=== PATIENT | female | born 1935 | race Hispanic/Latino ===

== ENCOUNTER 2017-11-07 19:01 | Observation (INO) | payer OTHER ==
[~2017-11-07] VITALS: Ht 157.5 cm; Wt 94.9 kg
[~2017-11-07 19:01] MED LIST: AMLO5TAB4 PO; CYAN100099 PO; ENAL20TA PO; LEVO112T7 PO; LOVA40TA2 PO; METO100T14 PO
[2017-11-07 19:40] LABS: BASOPHILS % (AUTO) 1.1 % (0.0-5.0); EOSINOPHILS % (AUTO) 1.9 % (0.0-8.0); HEMATOCRIT 34.2 % (36-48); LYMPHOCYTES % (AUTO) 20.6 % (21.0-51.0); MEAN CORPUSCULAR HEMOGLOBIN 30.5 pg (27.0-33.0); MEAN CORPUSCULAR HGB CONC 34.7 g/dL (32.0-36.0); NEUTROPHILS % (AUTO) 68.4 % (40.0-77.0); PLATELET COUNT (AUTO) 226 K/uL (130-400); RED BLOOD CELL COUNT(AUTO) 3.89 MIL/uL (4.00-5.50); RED CELL DISTRIBUTION WIDTH 14.1 % (11.0-15.5); WHITE BLOOD COUNT (AUTO) 7.5 K/uL (4.8-10.8)
[2017-11-07 19:51] LABS: CREATININE 1.1 mg/dL (0.5-1.5); POTASSIUM 3.7 mmol/L (3.5-5.1)
[2017-11-07 19:54] LABS: INR 1.09 (0.85-1.15); PARTIAL THROMBOPLASTIN TIME 26.5 SEC (26.3-35.5); PROTHROMBIN TIME 11.4 SEC (9.6-11.6)
[2017-11-07 20:04] LABS: BILIRUBIN,TOTAL 0.9 mg/dL (0.2-1.0); CREATINE KINASE MB 0.9 ng/mL (0.5-3.6)
[2017-11-07 20:16] LABS: B-TYPE NATRIURETIC PEPTIDE 39 pg/mL (0-100)
[2017-11-07 20:32] LABS: APPEARANCE,URINE Clear (CLEAR); BILIRUBIN,URINE Negative (NEGATIVE); COLOR,URINE Yellow (YELLOW); GLUCOSE, URINE (UA) Negative (NEGATIVE); KETONES,URINE Negative (NEGATIVE); LEUKOCYTE ESTERASE ,URINE Negative (NEGATIVE); NITRATE,URINE Negative (NEGATIVE); OCCULT BLOOD,URINE Negative (NEGATIVE); PH,URINE 5.5 (5.0-8.0); PROTEIN,URINE Negative (NEGATIVE); UROBILINOGEN,URINE 0.2 mg/dL (0.2-1.0)
[2017-11-07] MEDS ORDERED: SODIUM CHLORIDE 0.9% 10 ML VIAL IVP PRN (22:00)
[2017-11-07] MEDS: NITROGLYCERIN 1GM/1 INCH PACKET TD SCH (22:00)
[2017-11-07 23:15] VITALS: BP 176/83
[2017-11-08] MEDS ORDERED: SPIR25TA4 PO (00:23)
[2017-11-08] MEDS ORDERED: GARL1000 PO (00:23)
[2017-11-08] MEDS ORDERED: CHOL50004 PO (00:26)
[2017-11-08] MEDS ORDERED: ACET-2247 PO (00:28)
[2017-11-08] MEDS ORDERED: FLU VACC QS2017-18 36MOS UP/PF 60 MCG/0.5 ML ML IM SCH (02:00)
[2017-11-08 03:58] VITALS: BP 148/68
[2017-11-08 05:21] LABS: CREATINE KINASE MB 0.9 ng/mL (0.5-3.6); CREATINE KINASE, TOTAL 77 U/L (21-232); MYOGLOBIN 59 ng/mL (10-92); TROPONIN I < 0.04 ng/mL (0.00-0.06)
[2017-11-08] MEDS: NITROGLYCERIN 1GM/1 INCH PACKET TD SCH ×3 (06:40→20:24)
[2017-11-08 08:00] VITALS: BP 147/76
[2017-11-08] MEDS ORDERED: ASPIRIN 325 MG TABLET PO SCH (09:00)
[2017-11-08 11:00] VITALS: BP 133/72
[2017-11-08] MEDS ORDERED: DEXTROSE 50%-WATER 50 ML DISP.SYRIN IV PRN (11:45)
[2017-11-08] MEDS ORDERED: GLUCAGON 1MG KIT 1 MG ML IM PRN (11:45)
[2017-11-08 13:47] LABS: CREATINE KINASE MB 0.5 ng/mL (0.5-3.6); CREATINE KINASE, TOTAL 62 U/L (21-232); MYOGLOBIN 59 ng/mL (10-92); TROPONIN I < 0.04 ng/mL (0.00-0.06)
[2017-11-08] MEDS: PANTOPRAZOLE SODIUM 40 MG TABLET.DR PO SCH (16:12)
[2017-11-08 16:25] VITALS: BP 118/57
[2017-11-08] MEDS ORDERED: INSULIN HUMULIN R 100 UNIT/ML 3ML SQ SCH (16:30)
[2017-11-08] MEDS: INSULIN HUMULIN R 100 UNIT/ML 3ML SQ SCH ×2 (16:30→21:00)
[2017-11-08 19:21] VITALS: BP 155/78
[2017-11-08] MEDS ORDERED: MORPHINE SULFATE 2 MG/ML 1ML SYG IM PRN (20:15)
[2017-11-08] MEDS ORDERED: ONDANSETRON HCL 4 MG/2 ML VIAL IVP PRN (20:15)
[2017-11-08] MEDS ORDERED: HYDRALAZINE HCL 20 MG/ML VIAL IV PRN (20:15)
[2017-11-08] MEDS ORDERED: LACTULOSE 20 GM/30 ML UDCUP PO PRN (20:15)
[2017-11-08] MEDS ORDERED: ACETAMINOPHEN 325 MG TAB PO PRN (20:15)
[2017-11-08] MEDS: ENOXAPARIN SODIUM 40 MG/0.4 ML SYRINGE SQ SCH (20:26)
[2017-11-08] MEDS ORDERED: ENALAPRIL MALEATE 10 MG TABLET PO SCH (21:00)
[2017-11-08] MEDS ORDERED: ATORVASTATIN CALCIUM 10 MG TABLET PO SCH (21:00)
[2017-11-08] MEDS ORDERED: NITR0.4T50 SL (21:14)
[2017-11-08] MEDS ORDERED: ISOS60TA4 PO (21:14)
[2017-11-08] MEDS ORDERED: CLOP75TA32 PO (21:33)
[2017-11-08 23:47] VITALS: BP 124/54
[2017-11-09 04:18] VITALS: BP 124/60
[2017-11-09 04:56] LABS: EOSINOPHILS % (AUTO) 2.8 % (0.0-8.0); HEMATOCRIT 33.3 % (36-48); MEAN CORPUSCULAR VOLUME 88.3 fL (79-99); MONOCYTES % (AUTO) 8.6 % (3.0-13.0); NEUTROPHILS % (AUTO) 55.6 % (40.0-77.0); PLATELET COUNT (AUTO) 215 K/uL (130-400); RED BLOOD CELL COUNT(AUTO) 3.77 MIL/uL (4.00-5.50); RED CELL DISTRIBUTION WIDTH 14.5 % (11.0-15.5); WHITE BLOOD COUNT (AUTO) 7.6 K/uL (4.8-10.8)
[2017-11-09 05:15] LABS: CREATININE 1.1 mg/dL (0.5-1.5); POTASSIUM 3.8 mmol/L (3.5-5.1)
[2017-11-09] MEDS ORDERED: LEVOTHYROXINE 112 MCG TABLET PO SCH (06:30)
[2017-11-09] MEDS: INSULIN HUMULIN R 100 UNIT/ML 3ML SQ SCH ×2 (06:58→11:30)
[2017-11-09 08:00] VITALS: BP 139/60
[2017-11-09] MEDS ORDERED: CHOLECALCIFEROL 5000 UNIT PO SCH (09:00)
[2017-11-09] MEDS ORDERED: CYANOCOBALAMIN (VITAMIN B-12) 1,000 MCG TABLET PO SCH (09:00)
[2017-11-09] MEDS ORDERED: SPIRONOLACTONE 25 MG TAB PO SCH (09:00)
[2017-11-09] MEDS ORDERED: ISOSORBIDE MONO 60 MG TAB.SR PO SCH (09:00)
[2017-11-09] MEDS ORDERED: CLOPIDOGREL BISULFATE 75 MG TAB PO SCH (09:00)
[2017-11-09 11:00] VITALS: BP 109/59
[2017-11-09] MEDS: PANTOPRAZOLE SODIUM 40 MG TABLET.DR PO SCH (11:41)
[2017-11-09] MEDS: ENOXAPARIN SODIUM 40 MG/0.4 ML SYRINGE SQ SCH (11:45)
== END 2017-11-09 15:50 | disposition home or self-care (01) ==
LOC: EDH 19:01 → EDHIP 21:50 → 3BH 22:22
PROVIDERS: ADMIT Family Medicine; ATTEND Family Medicine
DX: I11.0 Hypertensive heart disease with heart failure (principal); I50.9 Heart failure, unspecified; E11.9 Type 2 diabetes mellitus without complications; E78.5 Hyperlipidemia, unspecified; E03.9 Hypothyroidism, unspecified; Z79.899 Other long term (current) drug therapy; F41.9 Anxiety disorder, unspecified; Z90.49 Acquired absence of other specified parts of digestive tract; Z82.49 Family history of ischemic heart disease and other diseases of the circulatory system; Z23 Encounter for immunization
CPT/HCPCS: 36415 ×3; 71045; 80048; 80053; 81003; 82550 ×3; 82553 ×3; 82948 ×6; 83690; 83874 ×3; 83880; 84484 ×4; 85025 ×2; 85610; 85730; 87804 ×2; 93005 ×3; 93306; 96372 ×2; 99291; G0008; G0378 ×42; J1650 ×2; Q2038

== ENCOUNTER 2017-12-21 15:57 | Emergency (ER) | payer OTHER ==
[~2017-12-21 15:57] MED LIST changes: +ACET-2247 PO; -AMLO5TAB4 PO; +CHOL50004 PO; +CLOP75TA32 PO; +GARL1000 PO; +ISOS60TA4 PO; -METO100T14 PO; +NITR0.4T50 SL; +SPIR25TA4 PO
[2017-12-21 16:51] LABS: BASOPHILS % (AUTO) 1.1 % (0.0-5.0); EOSINOPHILS % (AUTO) 4.1 % (0.0-8.0); HEMATOCRIT 33.3 % (36-48); LYMPHOCYTES % (AUTO) 20.4 % (21.0-51.0); MEAN CORPUSCULAR HGB CONC 34.7 g/dL (32.0-36.0); MEAN CORPUSCULAR VOLUME 89.3 fL (79-99); MONOCYTES % (AUTO) 7.7 % (3.0-13.0); NEUTROPHILS % (AUTO) 66.7 % (40.0-77.0); PLATELET COUNT (AUTO) 229 K/uL (130-400); RED BLOOD CELL COUNT(AUTO) 3.73 MIL/uL (4.00-5.50); WHITE BLOOD COUNT (AUTO) 7.5 K/uL (4.8-10.8)
[2017-12-21 17:09] LABS: CREATININE 1.1 mg/dL (0.5-1.5); POTASSIUM 4.1 mmol/L (3.5-5.1)
[2017-12-21 17:12] LABS: BILIRUBIN,TOTAL 0.9 mg/dL (0.2-1.0); TOTAL PROTEIN, SERUM 7.3 g/dL (6.0-8.3)
== END 2017-12-21 19:39 | disposition home or self-care (01) ==
LOC: EDH 15:57
DX: R00.2 Palpitations (principal); E11.9 Type 2 diabetes mellitus without complications; E78.5 Hyperlipidemia, unspecified; I10 Essential (primary) hypertension; Z88.0 Allergy status to penicillin; Z88.6 Allergy status to analgesic agent; Z88.1 Allergy status to other antibiotic agents; Z88.8 Allergy status to other drugs, medicaments and biological substances
CPT/HCPCS: 36415; 71045; 80053; 84484; 85025; 93005

== ENCOUNTER 2018-08-17 10:38 | Observation (INO) | payer OTHER ==
[~2018-08-17] VITALS: Ht 160 cm; Wt 92.8 kg
[~2018-08-17 10:38] MED LIST changes: -SPIR25TA4 PO; +SPIR25TA6 PO
[2018-08-17 10:58] LABS: BASOPHILS % (AUTO) 0.9 % (0.0-5.0); EOSINOPHILS % (AUTO) 2.4 % (0.0-8.0); HEMATOCRIT 36.9 % (36-48); LYMPHOCYTES % (AUTO) 24.5 % (21.0-51.0); MEAN CORPUSCULAR HEMOGLOBIN 29.6 pg (27.0-33.0); MEAN CORPUSCULAR HGB CONC 32.9 g/dL (32.0-36.0); MONOCYTES % (AUTO) 6.9 % (3.0-13.0); NEUTROPHILS % (AUTO) 65.3 % (40.0-77.0); PLATELET COUNT (AUTO) 197 K/uL (130-400)
[2018-08-17 11:08] LABS: CREATININE 1.3 mg/dL (0.5-1.5); POTASSIUM 4.5 mmol/L (3.5-5.1)
[2018-08-17 11:23] LABS: ALBUMIN 3.4 g/dL (3.5-5.0); BILIRUBIN,TOTAL 1.1 mg/dL (0.2-1.0); TOTAL PROTEIN, SERUM 7.6 g/dL (6.0-8.3)
[2018-08-17 11:37] LABS: B-TYPE NATRIURETIC PEPTIDE 130 pg/mL (0-100)
[2018-08-17] MEDS ORDERED: LACTULOSE 20 GM/30 ML UDCUP PO PRN (15:45)
[2018-08-17] MEDS ORDERED: ONDANSETRON HCL 4 MG/2 ML VIAL IV PRN (15:45)
[2018-08-17] MEDS ORDERED: HYDRALAZINE HCL 20 MG/ML VIAL IV PRN (15:45)
[2018-08-17] MEDS ORDERED: CLOPIDOGREL BISULFATE 300 MG TAB PO SCH (15:45)
[2018-08-17] MEDS ORDERED: ACETAMINOPHEN 325 MG TAB PO PRN ×2 (15:45→21:30)
[2018-08-17 18:52] LABS: HEMOGLOBIN A1C 6.6 % (4.0-6.0)
[2018-08-17 19:11] LABS: CREATINE KINASE, TOTAL 83 U/L (21-232); MYOGLOBIN 76 ng/mL (10-92); THYROID STIMULATING HORMONE 12.65 uIU/mL (0.36-3.74); TROPONIN I < 0.04 ng/mL (0.00-0.06)
[2018-08-17] MEDS ORDERED: METOPROLOL TARTRATE 25 MG TAB PO SCH (21:00)
[2018-08-17 21:20] VITALS: BP 148/75
[2018-08-17] MEDS ORDERED: NITROGLYCERIN 0.4 MG SL TAB SL PRN (21:30)
[2018-08-17] MEDS ORDERED: METF500T7 PO (21:48)
[2018-08-17] MEDS ORDERED: ERGO500014 PO (21:57)
[2018-08-17] MEDS ORDERED: SERT50TA12 PO (21:57)
[2018-08-17] MEDS ORDERED: METO100T14 PO (21:57)
[2018-08-17] MEDS ORDERED: DONE5TAB33 PO (22:01)
[2018-08-17] MEDS ORDERED: AEC81 PO (22:01)
[2018-08-17] MEDS: NITROGLYCERIN 1GM/1 INCH PACKET TD SCH (23:28)
[2018-08-18] VITALS (7 sets, daily range): BP systolic 98–135; BP diastolic 46–65
[2018-08-18 00:15] LABS: CREATINE KINASE, TOTAL 96 U/L (21-232); MYOGLOBIN 74 ng/mL (10-92); TROPONIN I < 0.04 ng/mL (0.00-0.06)
[2018-08-18] MEDS ORDERED: LEVOTHYROXINE 112 MCG TABLET PO SCH (06:30)
[2018-08-18] MEDS: INSULIN HUMULIN R 100 UNIT/ML 3ML SQ SCH ×4 (07:30→21:00)
[2018-08-18] MEDS ORDERED: PANTOPRAZOLE 40 MG/VIAL IVP SCH (07:30)
[2018-08-18] MEDS: NITROGLYCERIN 1GM/1 INCH PACKET TD SCH ×2 (07:45→15:45)
[2018-08-18 08:47] LABS: CREATINE KINASE, TOTAL 80 U/L (21-232); MYOGLOBIN 80 ng/mL (10-92); TROPONIN I < 0.04 ng/mL (0.00-0.06)
[2018-08-18] MEDS ORDERED: CLOPIDOGREL BISULFATE 75 MG TAB PO SCH (09:00)
[2018-08-18] MEDS ORDERED: METOPROLOL TARTRATE 50 MG TAB PO SCH (09:00)
[2018-08-18] MEDS ORDERED: ASPIRIN 325 MG TABLET PO SCH (09:00)
[2018-08-18] MEDS: Cholecalciferol (Vitamin D3) 5,000 UNIT PO SCH (09:00)
[2018-08-18] MEDS: CYANOCOBALAMIN (VITAMIN B-12) 1,000 MCG TABLET PO SCH (09:18)
[2018-08-18] MEDS: CLOPIDOGREL BISULFATE 75 MG TAB PO SCH (09:18)
[2018-08-18] MEDS: ASPIRIN 81 MG EC TAB PO SCH (09:19)
[2018-08-18] MEDS: SPIRONOLACTONE 25 MG TAB PO SCH (09:27)
[2018-08-18] MEDS: ISOSORBIDE MONO 60 MG TAB.SR PO SCH (09:27)
[2018-08-18] MEDS: ENOXAPARIN SODIUM 40 MG/0.4 ML SYRINGE SQ SCH (09:28)
[2018-08-18] MEDS ORDERED: METFORMIN HCL 500 MG TAB.SR.24H PO SCH (17:00)
[2018-08-18] MEDS: PANTOPRAZOLE SODIUM 40 MG TABLET.DR PO SCH (18:21)
[2018-08-18] MEDS ORDERED: SIMVASTATIN 10 MG TABLET PO SCH (21:00)
[2018-08-18] MEDS ORDERED: DONEPEZIL HCL 5 MG TAB PO SCH (21:00)
[2018-08-18] MEDS ORDERED: SERTRALINE HCL 50 MG TABLET PO SCH (21:00)
[2018-08-19 04:29] VITALS: BP 134/56
[2018-08-19] MEDS: PANTOPRAZOLE SODIUM 40 MG TABLET.DR PO SCH (06:19)
[2018-08-19] MEDS: INSULIN HUMULIN R 100 UNIT/ML 3ML SQ SCH ×2 (06:29→12:31)
[2018-08-19] MEDS ORDERED: LEVOTHYROXINE 125 MCG TABLET PO SCH (06:30)
[2018-08-19 08:00] VITALS: BP 133/70
[2018-08-19] MEDS: Cholecalciferol (Vitamin D3) 5,000 UNIT PO SCH (09:00)
[2018-08-19] MEDS: ENOXAPARIN SODIUM 40 MG/0.4 ML SYRINGE SQ SCH (09:04)
[2018-08-19] MEDS: SPIRONOLACTONE 25 MG TAB PO SCH (09:05)
[2018-08-19] MEDS: CYANOCOBALAMIN (VITAMIN B-12) 1,000 MCG TABLET PO SCH (09:05)
[2018-08-19] MEDS: ASPIRIN 81 MG EC TAB PO SCH (09:05)
[2018-08-19] MEDS: CLOPIDOGREL BISULFATE 75 MG TAB PO SCH (09:05)
[2018-08-19] MEDS: ISOSORBIDE MONO 60 MG TAB.SR PO SCH (09:05)
[2018-08-19] MEDS ORDERED: ATOR40TA71 PO (10:43)
[2018-08-19] MEDS ORDERED: LEVO125T95 PO (10:43)
[2018-08-19 11:00] VITALS: BP 85/56
[2018-08-19] MEDS ORDERED: ISOS30TA6 PO (15:59)
[2018-08-19 16:00] VITALS: BP 106/51
[2018-08-24] MEDS ORDERED: ERGOCALCIFEROL (VITAMIN D2) 50,000 UNIT CAPSULE PO SCH (09:00)
== END 2018-08-19 17:44 | disposition hospice, home (50) ==
LOC: EDH 10:38 → EDHIP 15:33 → 4BH 20:34
PROVIDERS: ADMIT Internal Medicine; ATTEND Internal Medicine
DX: R00.1 Bradycardia, unspecified (principal); R11.2 Nausea with vomiting, unspecified; I10 Essential (primary) hypertension; E78.2 Mixed hyperlipidemia; E11.9 Type 2 diabetes mellitus without complications; E03.9 Hypothyroidism, unspecified; F03.90 Unspecified dementia, unspecified severity, without behavioral disturbance, psychotic disturbance, mood disturbance, and anxiety; Z88.5 Allergy status to narcotic agent; Z88.0 Allergy status to penicillin; Z82.0 Family history of epilepsy and other diseases of the nervous system; Z82.3 Family history of stroke; Z82.49 Family history of ischemic heart disease and other diseases of the circulatory system; Z82.5 Family history of asthma and other chronic lower respiratory diseases; Z83.3 Family history of diabetes mellitus
CPT/HCPCS: 36415 ×2; 71045; 80053; 82550 ×4; 82948 ×7; 83036; 83874 ×3; 83880 ×2; 84443; 84484 ×4; 85025; 93005 ×3; 93306; 96372 ×2; 99285; G0378 ×50; J1650 ×2; J1815; C9113

== ENCOUNTER 2018-12-08 19:31 | Observation (INO) | payer OTHER ==
[~2018-12-08] VITALS: Ht 170.2 cm; Wt 95.9 kg
[~2018-12-08 19:31] MED LIST changes: +AEC81 PO; +ATOR40TA71 PO; +DONE5TAB33 PO; -ENAL20TA PO; +ERGO500014 PO; -GARL1000 PO; +ISOS30TA6 PO; -ISOS60TA4 PO; -LEVO112T7 PO; +LEVO125T95 PO; -LOVA40TA2 PO; +METF500T7 PO; +SERT50TA12 PO
[2018-12-08 20:49] LABS: BASOPHILS % (AUTO) 0.3 % (0.0-5.0); EOSINOPHILS % (AUTO) 8.2 % (0.0-8.0); HEMATOCRIT 32.6 % (36-48); LYMPHOCYTES % (AUTO) 21.6 % (21.0-51.0); MEAN CORPUSCULAR HEMOGLOBIN 27.9 pg (27.0-33.0); MEAN CORPUSCULAR HGB CONC 32.2 g/dL (32.0-36.0); MEAN CORPUSCULAR VOLUME 86.7 fL (79-99); MONOCYTES % (AUTO) 6.7 % (3.0-13.0); NEUTROPHILS % (AUTO) 63.2 % (40.0-77.0); PLATELET COUNT (AUTO) 245 K/uL (130-400); RED BLOOD CELL COUNT(AUTO) 3.76 MIL/uL (4.00-5.50); RED CELL DISTRIBUTION WIDTH 15.1 % (11.0-15.5); WHITE BLOOD COUNT (AUTO) 8.8 K/uL (4.8-10.8)
[2018-12-08 21:02] LABS: INR 1.06 (0.85-1.15); PARTIAL THROMBOPLASTIN TIME 24.7 SEC (26.3-35.5); PROTHROMBIN TIME 11.1 SEC (9.6-11.6)
[2018-12-08 21:09] LABS: BILIRUBIN,TOTAL 0.7 mg/dL (0.2-1.0); POTASSIUM 4.1 mmol/L (3.5-5.1); TOTAL PROTEIN, SERUM 7.3 g/dL (6.0-8.3)
[2018-12-08 21:16] LABS: APPEARANCE,URINE Clear (CLEAR); BILIRUBIN,URINE Negative (NEGATIVE); COLOR,URINE Yellow (YELLOW); GLUCOSE, URINE (UA) Negative (NEGATIVE); KETONES,URINE Negative (NEGATIVE); LEUKOCYTE ESTERASE ,URINE Moderate (NEGATIVE); NITRATE,URINE Negative (NEGATIVE); OCCULT BLOOD,URINE Negative (NEGATIVE); PH,URINE 7.5 (5.0-8.0); PROTEIN,URINE Negative (NEGATIVE); UROBILINOGEN,URINE 0.2 mg/dL (0.2-1.0)
[2018-12-08 21:19] LABS: CREATININE 1.2 mg/dL (0.5-1.5); MAGNESIUM 1.5 mg/dL (1.80-2.40)
[2018-12-08 21:33] LABS: B-TYPE NATRIURETIC PEPTIDE 267 pg/mL (0-100)
[2018-12-08 22:02] LABS: BACTERIA,URINE Few /HPF (None Seen); RBC,URINE 0-1 /HPF (0-1); SQUAMOUS EPITHELIAL CELL,UR 0-2 /HPF (0-2)
[2018-12-08] MEDS ORDERED: MAGNESIUM 2GM PREMIX 50ML 50 ML IV ONE (22:08)
[2018-12-08] MEDS ORDERED: SODIUM CHLORIDE 0.9% 500ML 500 ML IV ONE (22:09)
[2018-12-08] MEDS ORDERED: ASPIRIN 325 MG TABLET ONE (22:18)
[2018-12-08] MEDS ORDERED: ACETAMINOPHEN 325 MG TAB PO PRN (23:15)
[2018-12-08] MEDS ORDERED: NITROGLYCERIN 0.4 MG SL TAB SL PRN (23:15)
[2018-12-08] MEDS ORDERED: MORPHINE SULFATE 2 MG/ML 1ML SYG IVP PRN (23:15)
[2018-12-09] MEDS ORDERED: ASPI-555 PO (03:41)
[2018-12-09] MEDS ORDERED: SERT50TA12 PO (03:41)
[2018-12-09] MEDS ORDERED: METF-444 PO (03:41)
[2018-12-09] MEDS ORDERED: ISOS30TA6 PO (03:41)
[2018-12-09] MEDS ORDERED: SENN8.6T32 PO (03:41)
[2018-12-09] MEDS ORDERED: LEVO125T11 PO (03:41)
[2018-12-09] MEDS ORDERED: DONE5TAB26 PO (03:41)
[2018-12-09] MEDS ORDERED: OLAN5TAB27 PO (03:41)
[2018-12-09] MEDS ORDERED: PREG75 PO (03:41)
[2018-12-09] MEDS ORDERED: ATOR40TA71 PO (03:41)
[2018-12-09] MEDS ORDERED: CLOP75TA14 PO (03:41)
[2018-12-09] MEDS ORDERED: SPIR25TA6 PO (03:41)
[2018-12-09 04:05] VITALS: BP 153/67
[2018-12-09 04:53] LABS: BASOPHILS % (AUTO) 1.3 % (0.0-5.0); EOSINOPHILS % (AUTO) 9.8 % (0.0-8.0); HEMATOCRIT 31.7 % (36-48); MEAN CORPUSCULAR HEMOGLOBIN 28.5 pg (27.0-33.0); MEAN CORPUSCULAR HGB CONC 33.2 g/dL (32.0-36.0); MEAN CORPUSCULAR VOLUME 85.9 fL (79-99); MONOCYTES % (AUTO) 7.4 % (3.0-13.0); NEUTROPHILS % (AUTO) 58.5 % (40.0-77.0); PLATELET COUNT (AUTO) 210 K/uL (130-400); RED BLOOD CELL COUNT(AUTO) 3.69 MIL/uL (4.00-5.50); RED CELL DISTRIBUTION WIDTH 15.2 % (11.0-15.5)
[2018-12-09 05:06] LABS: CREATININE 1.2 mg/dL (0.5-1.5); POTASSIUM 3.6 mmol/L (3.5-5.1)
[2018-12-09 07:11] LABS: CREATINE KINASE, TOTAL 51 U/L (21-232); MYOGLOBIN 71 ng/mL (10-92); TROPONIN I < 0.04 ng/mL (0.00-0.06)
[2018-12-09 08:00] VITALS: BP 140/63
[2018-12-09] MEDS ORDERED: ENOXAPARIN SODIUM 40 MG/0.4 ML SYRINGE SQ SCH (09:00)
[2018-12-09] MEDS: PANTOPRAZOLE SODIUM 40 MG TABLET.DR PO SCH (09:12)
[2018-12-09 10:28] LABS: CREATINE KINASE, TOTAL 48 U/L (21-232); MYOGLOBIN 58 ng/mL (10-92); TROPONIN I < 0.04 ng/mL (0.00-0.06)
[2018-12-09 12:00] VITALS: BP 127/62
[2018-12-09] MEDS ORDERED: GLUCAGON 1MG KIT 1 MG ML IM PRN (14:45)
[2018-12-09] MEDS ORDERED: DEXTROSE 50%-WATER 50 ML DISP.SYRIN IV PRN (14:45)
[2018-12-09] MEDS ORDERED: IOHEXOL-350 75 ML VIAL IV ONE ×2 (15:09→17:35)
[2018-12-09] MEDS ORDERED: ENOXAPARIN SODIUM 100 MG/1 ML SQ SCH (15:15)
[2018-12-09 16:00] VITALS: BP_SYST 121; BP_SYST 167; BP_DIAS 75; BP_DIAS 77
[2018-12-09] MEDS: INSULIN HUMULIN R 100 UNIT/ML 3ML SQ SCH ×2 (16:30→20:52)
[2018-12-09] MEDS ORDERED: ATORVASTATIN CALCIUM 40 MG TABLET PO SCH (17:00)
[2018-12-09] MEDS ORDERED: LORAZEPAM 2 MG/ML 1 ML VIAL IVP PRN (19:15)
[2018-12-09 20:00] VITALS: BP 130/53
[2018-12-09] MEDS ORDERED: LORAZEPAM 2 MG/ML 1 ML VIAL ONE (20:10)
[2018-12-09] MEDS: PREGABALIN 75 MG CAPSULE PO SCH (20:15)
[2018-12-09] MEDS ORDERED: DONEPEZIL HCL 5 MG TAB PO SCH (21:00)
[2018-12-10] VITALS: BP 133/70
[2018-12-10 04:00] VITALS: BP 128/61
[2018-12-10] MEDS: INSULIN HUMULIN R 100 UNIT/ML 3ML SQ SCH ×2 (06:22→11:30)
[2018-12-10 08:00] VITALS: BP 152/84
--- NOTE | 2018-12-10 08:00 | NUR ---
AM SHIFT ASSESSMENT, SLEEPING, FAMILY MEMBER AT BEDSIDE.
[2018-12-10] MEDS: PREGABALIN 75 MG CAPSULE PO SCH (08:56)
[2018-12-10] MEDS: PANTOPRAZOLE SODIUM 40 MG TABLET.DR PO SCH (08:56)
[2018-12-10] MEDS ORDERED: ASPIRIN 81MG TAB.CHEW PO SCH (09:00)
[2018-12-10] MEDS ORDERED: SPIRONOLACTONE 25 MG TAB PO SCH (09:00)
[2018-12-10] MEDS ORDERED: ISOSORBIDE MONO 30MG TAB SR PO SCH (09:00)
[2018-12-10] MEDS ORDERED: LEVOTHYROXINE 125 MCG TABLET PO SCH (09:00)
[2018-12-10] MEDS ORDERED: OLANZAPINE 5 MG TAB PO SCH (09:00)
[2018-12-10] MEDS ORDERED: CLOPIDOGREL BISULFATE 75 MG TAB PO SCH (09:00)
[2018-12-10] MEDS ORDERED: SERTRALINE HCL 50 MG TABLET PO SCH (09:00)
--- NOTE | 2018-12-10 11:30 | NUR ---
DR. REYES IN TO SEE PT. NOW, DISCHARGE ORDERS GIVEN AND FAMILY NOTIFIED.
[2018-12-10 12:00] VITALS: BP 116/56
--- NOTE | 2018-12-10 16:00 | NUR ---
DISCHARGED NOW USING TEACH BACK, INST. GIVEN TO DAUGHTER WHOM IS THE CAREGIVER. AMBULANCE SERVICES OFFERED TO FAMILY AND THEY DECLINED. WILL TAKE VIA PRIVATE CAR. SALINE LOCK REMOVED AND ALSO REMOVED TELE-MONITOR. NO NEW RX. GIVEN, TO CONTINUE SAME HOME MEDS. BEFORE.
== END 2018-12-10 16:15 | disposition home or self-care (01) ==
LOC: EDH 19:31 → EDHIP 22:27 → 3BH 12-09 02:49
PROVIDERS: ADMIT Internal Medicine; ATTEND Internal Medicine
DX: R07.89 Other chest pain (principal); E03.9 Hypothyroidism, unspecified; E11.9 Type 2 diabetes mellitus without complications; R79.1 Abnormal coagulation profile; R47.02 Dysphasia; E66.01 Morbid (severe) obesity due to excess calories; E78.5 Hyperlipidemia, unspecified; F03.90 Unspecified dementia, unspecified severity, without behavioral disturbance, psychotic disturbance, mood disturbance, and anxiety; F41.9 Anxiety disorder, unspecified; Z51.5 Encounter for palliative care; Z79.02 Long term (current) use of antithrombotics/antiplatelets; Z79.899 Other long term (current) drug therapy; Z88.6 Allergy status to analgesic agent
CPT/HCPCS: 36415 ×2; 70450; 71045 ×2; 71275; 80048; 80053; 81001; 82550 ×3; 82948 ×6; 83605; 83690; 83735; 83874 ×2; 83880; 84484 ×3; 85025 ×2; 85378; 85610; 85730; 93005 ×2; 96372; 99284; G0378 ×42; J1650; J2060; J3475; J7040; Q9967